=== PATIENT | female | born 1950 | race Caucasian/White ===

== ENCOUNTER 2018-11-26 12:06 | Emergency (ER) | payer OTHER ==
[~2018-11-26] VITALS: Ht 157.5 cm; Wt 59.0 kg
[~2018-11-26 12:06] MED LIST: ACYC800 PO; ALEN70 PO; ALPR.5 PO; AMOCLA875 PO; Benadryl PO; CALCIUM CARBON200 MG PO; CEPH500 PO; CETI10 PO; CETI5 PO; CHOL10002 PO; CLIN300 PO; DESL5 PO; DOCU100 PO; EPIPEN 2-P0.3 MG/0.3 IM; FAMO20 PO; HYDACE5 PO; LAVAP17G PO; LISI20 PO; NUTRITIONAL YEAST; PRED20 PO; Prednisone20 MG PO; QVAR REDIHALE10.6 GM INH; ROSU10TA PO; VITAMIN B
[2018-11-26] MEDS ORDERED: Norco 5-325 Ta1 EACH PO (12:23)
== END 2018-11-26 12:26 | disposition home or self-care (01) ==
LOC: ER 12:06
DX: H57.12 Ocular pain, left eye (principal); Z88.8 Allergy status to other drugs, medicaments and biological substances; Z91.018 Allergy to other foods; Z79.899 Other long term (current) drug therapy; Z79.52 Long term (current) use of systemic steroids; E78.5 Hyperlipidemia, unspecified; I10 Essential (primary) hypertension; J45.909 Unspecified asthma, uncomplicated
CPT/HCPCS: 99283

== ENCOUNTER → 2019-02-02 | Outpatient (CLI) | payer OTHER ==
[~2019-02-02] MED LIST changes: +Norco 5-325 Ta1 EACH PO
[2019-02-04 15:00] LABS: Stool Occult Bld Immuno 1 Negative (NEGATIVE)
== END ==
LOC: LAB 13:30 → LAB SHORT 13:30
PROVIDERS: Nurse Practitioner Family
DX: Z12.11 Encounter for screening for malignant neoplasm of colon (principal)
CPT/HCPCS: G0328

== ENCOUNTER 2019-03-26 11:39 | Emergency (ER) | payer OTHER ==
[~2019-03-26] VITALS: Ht 157.5 cm; Wt 59.0 kg
[2019-03-26 12:53] LABS: BASOPHILS ABSOLUTE AUTO 0.02 K/mm3 (0.00-0.23); BASOPHILS PERCENT AUTO 0 % (0-2); EOSINOPHILS PERCENT AUTO 0 % (0-6); Hematocrit 48.8 % (33.0-51.0); IMMATURE GRAN ABSOLUTE AUTO 0.02 K/mm3 (0.00-0.10); IMMATURE GRAN PERCENT AUTO 0 % (0-1); LYMPHOCYTES PERCENT AUTO 18 % (21-46); MONOCYTES ABSOLUTE AUTO 0.34 K/mm3 (0.16-1.47); MONOCYTES PERCENT AUTO 4 % (4-13); Mean Corpuscular HGB Conc 32.8 g/dL (31.5-36.5); Mean Corpuscular Volume 92 fL (80-100); Mean Platelet Volume 9.1 fL (9.1-12.4); NEUTROPHILS ABSOLUTE AUTO 6.05 K/mm3 (1.96-9.15); NEUTROPHILS PERCENT AUTO 77 % (41-73); Platelet Count 289 K/mm3 (150-400); RDW Coefficient Variation 13.2 % (11.7-14.2); Red Blood Cell Count 5.33 M/mm3 (3.80-5.20); White Blood Cell Count 7.83 K/mm3 (4.00-11.30)
[2019-03-26 13:10] LABS: Alanine Aminotransfer (ALT/SGP 26 U/L (12-78); Albumin, Blood 3.9 g/dL (3.4-5.0); Albumin/Globulin Ratio 0.9 (0.8-1.8); Alk Phos 73 U/L (50-136); Anion Gap 7 mmol/L (6-16); Aspartate Aminotrans (AST/SGOT 29 U/L (12-37); Bilirubin, Total 0.5 mg/dL (0.1-1.0); Blood Urea Nitrogen 14 mg/dL (8-24); Bun/Creatinine Ratio 19.9 (12.0-20.0); CO2, Blood 26 mmol/L (21-32); Calcium, Blood 9.3 mg/dL (8.5-10.1); Chloride, Blood 105 mmol/L (98-108); Globulin, Blood 4.2 g/dL (2.2-4.0); Glomerular Filtration Rate >60 (60-); Glucose, Blood 105 mg/dL (70-99); Potassium, Blood 4.3 mmol/L (3.5-5.5); Sodium, Blood 138 mmol/L (136-145); Total Protein, Blood 8.1 g/dL (6.4-8.2); Troponin I <0.015 ng/mL (0.000-0.040)
[2019-03-26] MEDS ORDERED: Vistaril25 MG PO (13:56)
[2019-03-26] MEDS ORDERED: EPIPEN 2-P0.3 MG/0.3 IM (13:56)
[2019-03-26] MEDS ORDERED: PRED20 PO (13:56)
== END 2019-03-26 14:05 | disposition home or self-care (01) ==
LOC: ER 11:39
PROVIDERS: Emergency Medicine
DX: T78.3XXA Angioneurotic edema, initial encounter (principal); T46.4X5A Adverse effect of angiotensin-converting-enzyme inhibitors, initial encounter; Z88.8 Allergy status to other drugs, medicaments and biological substances; Z91.018 Allergy to other foods; Z79.899 Other long term (current) drug therapy; Z79.52 Long term (current) use of systemic steroids; I10 Essential (primary) hypertension; E78.5 Hyperlipidemia, unspecified
CPT/HCPCS: 36415; 71045; 80053; 83880; 84484; 85025; 93005; 93010; 94640; 94760; 96361; 96374; 96375; 99284-25; J1200; J2930; J7030

== ENCOUNTER 2019-04-29 14:51 | Emergency (ER) | payer OTHER ==
[~2019-04-29] VITALS: Ht 157.5 cm; Wt 59.0 kg
[~2019-04-29 14:51] MED LIST changes: +Vistaril25 MG PO
[2019-04-29] MEDS ORDERED: Dexamethasone4 MG PO (15:32)
== END 2019-04-29 17:14 | disposition home or self-care (01) ==
LOC: ER 14:51
DX: T78.1XXA Other adverse food reactions, not elsewhere classified, initial encounter (principal); L50.0 Allergic urticaria; Z88.8 Allergy status to other drugs, medicaments and biological substances; Z91.018 Allergy to other foods; Z79.899 Other long term (current) drug therapy; Z79.52 Long term (current) use of systemic steroids; E78.5 Hyperlipidemia, unspecified; I10 Essential (primary) hypertension; J45.909 Unspecified asthma, uncomplicated
CPT/HCPCS: 96374; 99283-25; J1200; J2930

== ENCOUNTER 2019-12-18 18:23 | Inpatient (IN) | payer OTHER ==
[~2019-12-18] VITALS: Ht 157.5 cm; Wt 67.2 kg
[~2019-12-18 18:23] MED LIST changes: +Crestor20 MG PO; +Dexamethasone4 MG PO; +LOSA25 PO; -ROSU10TA PO
[2019-12-18 19:57] LABS: BASOPHILS ABSOLUTE AUTO 0.03 K/mm3 (0.00-0.23); BASOPHILS PERCENT AUTO 0 % (0-2); EOSINOPHILS ABSOLUTE AUTO 0.05 K/mm3 (0.00-0.68); EOSINOPHILS PERCENT AUTO 1 % (0-6); Hematocrit 45.4 % (33.0-51.0); Hemoglobin 14.6 g/dL (11.5-16.0); IMMATURE GRAN ABSOLUTE AUTO 0.02 K/mm3 (0.00-0.10); IMMATURE GRAN PERCENT AUTO 0 % (0-1); LYMPHOCYTES ABSOLUTE AUTO 2.74 K/mm3 (0.84-5.20); LYMPHOCYTES PERCENT AUTO 30 % (21-46); MONOCYTES ABSOLUTE AUTO 0.72 K/mm3 (0.16-1.47); MONOCYTES PERCENT AUTO 8 % (4-13); Mean Corpuscular HGB 29.6 pg (26.0-34.0); Mean Corpuscular HGB Conc 32.2 g/dL (31.5-36.5); Mean Corpuscular Volume 92 fL (80-100); Mean Platelet Volume 9.2 fL (9.1-12.4); NEUTROPHILS ABSOLUTE AUTO 5.55 K/mm3 (1.96-9.15); NEUTROPHILS PERCENT AUTO 61 % (41-73); Platelet Count 268 K/mm3 (150-400); RDW Coefficient Variation 12.9 % (11.7-14.2); RDW Standard Deviation 44.2 fL (35.1-46.3); Red Blood Cell Count 4.94 M/mm3 (3.80-5.20); White Blood Cell Count 9.11 K/mm3 (4.00-11.30)
[2019-12-18 20:16] LABS: Alanine Aminotransfer (ALT/SGP 20 U/L (12-78); Albumin, Blood 3.6 g/dL (3.4-5.0); Alk Phos 76 U/L (50-136); Anion Gap 5 mmol/L (6-16); Aspartate Aminotrans (AST/SGOT 30 U/L (12-37); Bilirubin, Total 0.3 mg/dL (0.1-1.0); Blood Urea Nitrogen 12 mg/dL (8-24); Bun/Creatinine Ratio 15.2 (12.0-20.0); CO2, Blood 29 mmol/L (21-32); Calcium, Blood 9.2 mg/dL (8.5-10.1); Chloride, Blood 106 mmol/L (98-108); Creatinine, Blood 0.79 mg/dL (0.40-1.00); Globulin, Blood 3.7 g/dL (2.2-4.0); Glomerular Filtration Rate >60 (60-); Glucose, Blood 124 mg/dL (70-99); Potassium, Blood 3.9 mmol/L (3.5-5.5); Sodium, Blood 140 mmol/L (136-145); Total Protein, Blood 7.3 g/dL (6.4-8.2)
[2019-12-18] MEDS ORDERED: Prednisone10 MG PO (21:24)
[2019-12-18] MEDS ORDERED: ALENDRONATE SOD10 MG PO (21:24)
[2019-12-18] MEDS ORDERED: Loratadine10 MG PO (21:25)
--- NOTE | 2019-12-18 23:30 | NUR ---
PT ADMITTED FROM ER FOR SBO. A&O X4. VSS. DENIES PAIN AND NAUSEA AT THIS TIME. OUT OF BED TO BATHROOM INDEPENDENTLY. PT GIVEN DILAUDID IN ER WHICH CAUSED PT TO DESAT PER REPORT. PT NOW ON 2LO2 VIA NC.
[2019-12-19 00:12] LABS: Source, Urine Clean Catch
[2019-12-19 00:14] LABS: Bilirubin, Urine Neg (Neg); Blood, Urine Neg (Neg); Glucose Qualitative, Urine Neg (Neg); Ketones, Urine 1+ (Neg); Leukocyte Esterase, Urine Neg (Neg); Nitrite, Urine Neg (Neg); Protein, Urine Neg (Neg); Specific Gravity, Urine 1.005 (1.003-1.022); Urobilinogen, Urine NORM (Normal)
[2019-12-19 00:17] LABS: Appearance, Urine Clear (Clear); Color, Urine Yellow (P-Yellow)
[2019-12-19 04:42] LABS: BASOPHILS ABSOLUTE AUTO 0.03 K/mm3 (0.00-0.23); BASOPHILS PERCENT AUTO 0 % (0-2); EOSINOPHILS ABSOLUTE AUTO 0.06 K/mm3 (0.00-0.68); EOSINOPHILS PERCENT AUTO 1 % (0-6); Hematocrit 41.7 % (33.0-51.0); Hemoglobin 13.7 g/dL (11.5-16.0); IMMATURE GRAN ABSOLUTE AUTO 0.02 K/mm3 (0.00-0.10); IMMATURE GRAN PERCENT AUTO 0 % (0-1); LYMPHOCYTES ABSOLUTE AUTO 2.37 K/mm3 (0.84-5.20); LYMPHOCYTES PERCENT AUTO 27 % (21-46); MONOCYTES ABSOLUTE AUTO 0.71 K/mm3 (0.16-1.47); MONOCYTES PERCENT AUTO 8 % (4-13); Mean Corpuscular HGB 29.9 pg (26.0-34.0); Mean Corpuscular HGB Conc 32.9 g/dL (31.5-36.5); Mean Corpuscular Volume 91 fL (80-100); Mean Platelet Volume 9.2 fL (9.1-12.4); NEUTROPHILS ABSOLUTE AUTO 5.55 K/mm3 (1.96-9.15); NEUTROPHILS PERCENT AUTO 64 % (41-73); Platelet Count 219 K/mm3 (150-400); RDW Standard Deviation 43.6 fL (35.1-46.3); Red Blood Cell Count 4.58 M/mm3 (3.80-5.20); White Blood Cell Count 8.74 K/mm3 (4.00-11.30)
[2019-12-19 05:04] LABS: Alanine Aminotransfer (ALT/SGP 20 U/L (12-78); Albumin/Globulin Ratio 0.9 (0.8-1.8); Alk Phos 67 U/L (50-136); Anion Gap 3 mmol/L (6-16); Aspartate Aminotrans (AST/SGOT 25 U/L (12-37); Bilirubin, Total 0.4 mg/dL (0.1-1.0); Blood Urea Nitrogen 10 mg/dL (8-24); Bun/Creatinine Ratio 13.7 (12.0-20.0); CO2, Blood 28 mmol/L (21-32); Calcium, Blood 8.6 mg/dL (8.5-10.1); Chloride, Blood 109 mmol/L (98-108); Creatinine, Blood 0.73 mg/dL (0.40-1.00); Globulin, Blood 3.4 g/dL (2.2-4.0); Glomerular Filtration Rate >60 (60-); Glucose, Blood 90 mg/dL (70-99); Sodium, Blood 140 mmol/L (136-145); Total Protein, Blood 6.4 g/dL (6.4-8.2)
--- NOTE | 2019-12-19 10:26 | NUR ---
Advance Directive education conducted. Upon receiving an admit referral for Advance directive (AD) education, I visit patient. Patient tells me that she has the form at home but does not know what to do with it. I explain the process and importance of the AD. I go over how and where to file the AD. Patient confirms comprehension. I will continue to remain available to patient for further assistance.
--- NOTE | 2019-12-19 18:12 | NUR ---
SHIFT SUMMARY PT HAS DONE WELL THIS SHIFT. TOLERATED TO CLEAR LIQUID DIET WITH NO C/O N/V. HAS HAD 2 LOOSE BM. HAS REPORTED THAT ABDOMINAL PAIN IS TOLERABLE T/O SHIFT.
--- NOTE | 2019-12-20 03:39 | NUR ---
SHIFT SUMMARY: PT HAS DONE WELL THIS SHIFT. REPORTS PAIN IS TOLERABLE AND DENIES NEED FOR MEDICATION. DENIES N/V AND GIOVANNA FULL LIQ DIET. PASSING FLATUS AND HAVING BM'S. ACTIVE BT X4. INGUINAL HERNIA TO LLQ NOTED, DESPITE BEING REDUCED IN ER PRIOR TO ADMIT. VS WNL THIS SHIFT. SBA FOR ALL TRANSFERS.
--- NOTE | 2019-12-20 10:30 | NUR ---
DC INSTRUCTIONS GIVEN, VERBALIZED UNDERSTANDING.
--- NOTE | 2019-12-20 10:45 | NUR ---
Patient is standing and immediately shows me the hernia hanging out even observable covered by her gown and explains about the difficulty with work and other hardships it will cause. Patient is in tears. I listen empathically, normalize patient's experience and provide emotional support and prayer. Patient is tearful through the prayer and voices appreciation for the time and care. Patient states that she is convinced that she will be returning shortly with the same issue.
== END 2019-12-20 10:52 | disposition home or self-care (01) | DRG 388 ==
LOC: ER 18:23 → SURS 22:28
PROVIDERS: Nurse Practitioner; ADMIT Internal Medicine
DX: K56.600 Partial intestinal obstruction, unspecified as to cause (principal); K40.10 Bilateral inguinal hernia, with gangrene, not specified as recurrent; I10 Essential (primary) hypertension; E78.5 Hyperlipidemia, unspecified; Z79.52 Long term (current) use of systemic steroids; Z79.83 Long term (current) use of bisphosphonates
CPT/HCPCS: 36415; 74177; 80053; 81003; 83690; 85025; 96374-59; 96375-59; 99285-25; A9270; J1170; J1650; J2060; J2405; J7030; Q9967

== ENCOUNTER 2020-01-09 19:24 | Inpatient (IN) | payer OTHER ==
[~2020-01-09] VITALS: Ht 157.5 cm; Wt 61.0 kg
[~2020-01-09 19:24] MED LIST changes: +ALENDRONATE SOD10 MG PO; +Loratadine10 MG PO; +Prednisone10 MG PO
[2020-01-09 20:08] LABS: BASOPHILS ABSOLUTE AUTO 0.07 K/mm3 (0.00-0.23); BASOPHILS PERCENT AUTO 1 % (0-2); EOSINOPHILS ABSOLUTE AUTO 0.17 K/mm3 (0.00-0.68); EOSINOPHILS PERCENT AUTO 2 % (0-6); Hematocrit 45.9 % (33.0-51.0); Hemoglobin 15.2 g/dL (11.5-16.0); IMMATURE GRAN ABSOLUTE AUTO 0.01 K/mm3 (0.00-0.10); IMMATURE GRAN PERCENT AUTO 0 % (0-1); LYMPHOCYTES ABSOLUTE AUTO 3.65 K/mm3 (0.84-5.20); LYMPHOCYTES PERCENT AUTO 43 % (21-46); MONOCYTES ABSOLUTE AUTO 0.76 K/mm3 (0.16-1.47); MONOCYTES PERCENT AUTO 9 % (4-13); Mean Corpuscular HGB 29.9 pg (26.0-34.0); Mean Corpuscular HGB Conc 33.1 g/dL (31.5-36.5); Mean Corpuscular Volume 90 fL (80-100); Mean Platelet Volume 9.1 fL (9.1-12.4); NEUTROPHILS ABSOLUTE AUTO 3.76 K/mm3 (1.96-9.15); NEUTROPHILS PERCENT AUTO 45 % (41-73); Platelet Count 261 K/mm3 (150-400); RDW Coefficient Variation 12.6 % (11.7-14.2); RDW Standard Deviation 42.1 fL (35.1-46.3); Red Blood Cell Count 5.08 M/mm3 (3.80-5.20); White Blood Cell Count 8.42 K/mm3 (4.00-11.30)
[2020-01-09 20:29] LABS: Alanine Aminotransfer (ALT/SGP 21 U/L (12-78); Albumin, Blood 4.1 g/dL (3.4-5.0); Alk Phos 82 U/L (50-136); Anion Gap 5 mmol/L (6-16); Aspartate Aminotrans (AST/SGOT 27 U/L (12-37); Bilirubin, Total 0.4 mg/dL (0.1-1.0); Blood Urea Nitrogen 24 mg/dL (8-24); Bun/Creatinine Ratio 26.5 (12.0-20.0); CO2, Blood 28 mmol/L (21-32); Calcium, Blood 9.3 mg/dL (8.5-10.1); Chloride, Blood 104 mmol/L (98-108); Creatinine, Blood 0.91 mg/dL (0.40-1.00); Globulin, Blood 4.2 g/dL (2.2-4.0); Glomerular Filtration Rate >60 (60-); Glucose, Blood 97 mg/dL (70-99); Potassium, Blood 3.7 mmol/L (3.5-5.5); Sodium, Blood 137 mmol/L (136-145); Total Protein, Blood 8.3 g/dL (6.4-8.2)
[2020-01-09] MEDS ORDERED: ZYRTEC10 M2 PO (21:10)
--- NOTE | 2020-01-10 00:06 | NUR ---
PT ARRIVED TO ROOM 229 FROM ER. PT A/O, WEAK/PAINFUL WHEN UP. PT C/O NAUSEA, REP ABD PAIN 7/10 W/MVMT. PT HAS LARGE HERNIA TO LEFT LOWER ABD/INGUINAL SITE. SITE FIRM, HOT, PAINFUL TO PALP. PT ORIENTED TO ROOM, ORDERS AND TX PLAN REV W/PT. PT GIVEN WARM BLANKET PER REQ FOR PAIN, MEDICATED FOR NAUSEA, IVF STARTED. PT NPO, CALL LIGHT IN REACH, PLAN TO MONITOR AND TX PER JESSICA
--- NOTE | 2020-01-10 07:20 | NUR ---
RECVD REPORT FROM PREVIOUS RN NASEEM, PT SLEEPING IN BED, BED IN LOWEST POSITION, CALL LIGHT WITHIN REACH, BED RAILS UP X 2
--- NOTE | 2020-01-10 07:41 | NUR ---
PT NEW ADMIT FOR INCARCERATED LEFT INGUINAL HERNIA. PT VSS, SATS >90% W/2LO2 NC. PT STRUGGLED W/NAUSEA, ZOFRAN GIVEN PER ORDERS. PT VERY PAINFUL W/MVMT, SITE FIRM, PAINFUL TO PALP. PAIN MGD W/0.25MG IV DILAUDID W/REP RELIEF. PT REP SOME DIFFICULTY VOIDING R/T PRESSURE FROM HERNIA. PT UP OOB W/FWW+SBA, IS USING CALL LIGHT FOR ASSISTANCE. PT NPO SINCE ARRIVING TO FLOOR, IVF CONT. REPORT GIVEN TO DAY RN.
--- NOTE | 2020-01-10 19:19 | NUR ---
shift summary: vss, no acute changes t/o shift, pt remained a/o x 4, pleasant/cooperative, npo awaiting surgical repair, urine output >400 using bedside commode and gait belt to transfer r/t weakness. pt states she is weaker than she has been before with this current admit. pt rates pain at 5-6/10 prior to analgesia per nov, 2-3/10 on reassessment. p pt returned from surgical intervention hernia repair approx 1850, a/o x 4, rates pain at 0/10. no n/v, requests apple juice
--- NOTE | 2020-01-10 20:42 | NUR ---
PATIENT RETURNED FROM OR @1852, PATIENT IS AWAKE AND AWARE. NO COMPLAINTS OF PAIN. VSS. NO BLEED THROUGH ON GAUZE DRESSING ON THE SURGICAL INCISION ON LT LOWER QUADRANT. SCDs ON WITH PUMP ON. PT IS THIRSTY AND HAS INITIALLY TOLERATED PO FLUIDS WELL POST OP.
--- NOTE | 2020-01-10 21:21 | NUR ---
PT HAS MILD SWELLING TO THE LT SIDE OF HER UPPER AND LOWER LIPS. SHE STATED THAT SHE WOULD NORMALLY TAKE ZYRTEC AND EQUIVILANT WAS GIVEN. NO ISSUES WITH BREATHING, NO ANGIOEDEMA. NO OTHER HIVES OR SWELLING. UP TO BSC WITHOUT ISSUES.
--- NOTE | 2020-01-11 00:26 | NUR ---
ASSUMED CARE OF PT AT THIS TIME. ASSISTED UP TO BSC, BACK TO BED, TOLERATED WELL, DENIES FURTHER NEEDS. SWELLING TO LIPS/CHEEK SLIGHTLY INCREASED FROM PREVIOUS ASSESSMENT. PT DENIES DIFFICULTY BREATHING/SWALLOWING, REPORTS "THIS HAS HAPPENED BEFORE WITH TAPE ALLERGY." VSS. WILL CONTINUE TO MONITOR CLOSELY, CALL LIGHT IN REACH.
--- NOTE | 2020-01-11 04:04 | NUR ---
SHIFT SUMMARY POD#1 HERNIA REPAIR WITH MESH. AAOX4. PT DENIES DISCOMFORT/NAUSEA T/O NIGHT. ABD INCISION C/D/I. PT SBA UP TO BSC, TOLERATES WELL. INCREASED SWELLING TO PT'S LIPS/CHEEKS POST OP, DENIES SOB OR DIFFICULTY SWALLOWING. PT REPORTING THIS A COMMON REACTION TO TAPE USE DURING OR, 50mg IV BENADRYL GIVEN X1 YESTARDAY. PT RESTING WELL THIS AM WITH CALL LIGHT IN REACH.
--- NOTE | 2020-01-11 10:27 | NUR ---
01/11/20 1027 Eleanor Monterroso VERIFICATIONS, AUDITS.
--- NOTE | 2020-01-11 16:10 | NUR ---
SHIFT SUMMARY PT DOING WELL THIS SHIFT. VSS. 1 NORCO FOR PAIN PRN. GAUZE TO ABD REMAINS CDI. PT GIOVANNA CLEAR LIQ DIET AND IS ADVANCING TO REG DIET FOR DINNER. 1 MIN SBA WITH FWW TO BATHROOM AND DURING AMBULATION. PT REPORTS PASSING GAS. USES CALL LIGHT APPROPRIATELY. PT TO DISCHARGE HOME TOMORROW IF DOES WELL T/O NIGHT.
--- NOTE | 2020-01-11 23:36 | NUR ---
PATIENT WOKE AND CALLED RN DUE TO HEARTBURN AND NAUSEA. NEW IV STARTED AND PT GIVEN ZOFRAN IV.
--- NOTE | 2020-01-12 05:08 | NUR ---
PATIENT'S NAUSEA RESOLVED SHORTLY AFTER THE ZOFRAN IV. SHE WAKES EASILY TO VERBAL STIM, CALLS APPROPRIATELY TO HELP WITH BRP. USES WALKER & GAIT BELT WITH SBA. LT ABD DRESSING IS C/D/I. NO ACUTE CHANGES THIS SHIFT.
[2020-01-12] MEDS ORDERED: HYDR1TAB94 PO (12:18)
--- NOTE | 2020-01-12 12:59 | NUR ---
DISCHARGE PT DISCHARGING HOME. PT EDUCATED ON AND RECEIVED PRINTED DC INSTRUCTIONS AND VERBALIZED AN UNDERSTANDING. HARD RX FOR NORCO GIVEN TO PT. IV DC'D. PT INDEPENDENTLY DRESSED SELF AND GATHERED PERSONAL BELONGINGS. [employer] CALLED FOR TRANSPORTATION HOME PER PT REQUEST AND IS PAID BY PT.
== END 2020-01-12 13:17 | disposition home or self-care (01) | DRG 351 ==
LOC: ER 19:24 → SURS 19:25
PROVIDERS: Nurse Practitioner; ADMIT Surgery
PROC: 0YU60JZ Supplement Left Inguinal Region with Synthetic Substitute, Open Approach (ICD-10-PCS; principal; 2020-01-12)
DX: K40.30 Unilateral inguinal hernia, with obstruction, without gangrene, not specified as recurrent (principal); K56.609 Unspecified intestinal obstruction, unspecified as to partial versus complete obstruction; K51.90 Ulcerative colitis, unspecified, without complications; I10 Essential (primary) hypertension; E78.5 Hyperlipidemia, unspecified; Z79.83 Long term (current) use of bisphosphonates; Z79.899 Other long term (current) drug therapy
CPT/HCPCS: 36415; 74177; 80053; 85025; 96361; 96374-59; 96375; 96376; 99285-25; A9270-GY; C1781; J0690; J1100; J1170; J1200; J1885; J2250; J2370; J2405; J2704; J2710; J3010; J7030; Q9967

== ENCOUNTER 2020-07-04 14:52 | Day surgery (SDC) | payer OTHER ==
--- NOTE | 2020-07-04 10:40 | NUR ---
LATE ENTRY DUE [facility]- Discharge instructions reviewed with patient. Patient verbalizes understanding. Copy given to patient to take home. Discharged via wheelchair to private car for ride home. TOLERATED JUICE WELL.
--- NOTE | 2020-07-04 11:32 | NUR ---
07/04/20 1132 Paulina Quintero History, Chart, Medications and Allergies reviewed before start of procedure.Patient confirms NPO status and agrees with scheduled surgery.MONITOR INTACT WITH CONTINUOUS PULSE OXIMETRY AND INTERMITTENT BP.3-LEAD EKG REVIEWED WITH PHYSICIAN PRIOR TO START OF PROCEDURE.O2 VIA N/C INTACT THROUGHOUT SEDATION/PROCEDURE.PATIENT DETERMINED TO BE ASA APPROPRIATE FOR PROPOFOL SEDATION PRIOR TO START OF PROCEDURE BY
--- NOTE | 2020-07-04 12:23 | NUR ---
BROUGHT INOT SDS AT 0745 ADMISSION STARTED TO UNIT. Ambulatory in Day Surgery History, Chart, Medications and Allergies reviewed before start of procedure.Lungs clear T/O to Auscultation. Patient States Post-Procedure ride home has been arranged.
[~2020-07-04 14:52] MED LIST changes: +HYDR1TAB94 PO; +ZYRTEC10 M2 PO
== END 2020-07-04 16:00 | disposition home or self-care (01) ==
LOC: ORSCMMR 14:52
PROVIDERS: Internal Medicine Gastroenterology
PROC: 0DBL8ZX Excision of Transverse Colon, Via Natural or Artificial Opening Endoscopic, Diagnostic (ICD-10-PCS; principal; 2020-07-04 08:30)
DX: Z12.11 Encounter for screening for malignant neoplasm of colon (principal); Z86.010 Personal history of colon polyps; D12.3 Benign neoplasm of transverse colon; I10 Essential (primary) hypertension; E78.00 Pure hypercholesterolemia, unspecified; Z79.899 Other long term (current) drug therapy
CPT/HCPCS: 88305; J2704; J7120

== ENCOUNTER 2021-07-17 09:04 | Emergency (ER) | payer OTHER ==
[~2021-07-17] VITALS: Ht 157.5 cm; Wt 60.8 kg
[2021-07-17 09:40] LABS: BASOPHILS ABSOLUTE AUTO 0.07 K/mm3 (0.00-0.23); BASOPHILS PERCENT AUTO 1 % (0-2); EOSINOPHILS ABSOLUTE AUTO 0.25 K/mm3 (0.00-0.68); EOSINOPHILS PERCENT AUTO 3 % (0-6); Hematocrit 45.1 % (33.0-51.0); Hemoglobin 14.9 g/dL (11.5-16.0); IMMATURE GRAN ABSOLUTE AUTO 0.01 K/mm3 (0.00-0.10); IMMATURE GRAN PERCENT AUTO 0 % (0-1); LYMPHOCYTES ABSOLUTE AUTO 3.21 K/mm3 (0.84-5.20); LYMPHOCYTES PERCENT AUTO 43 % (21-46); MONOCYTES PERCENT AUTO 11 % (4-13); Mean Corpuscular Volume 91 fL (80-100); Mean Platelet Volume 9.3 fL (9.1-12.4); NEUTROPHILS ABSOLUTE AUTO 3.06 K/mm3 (1.96-9.15); NEUTROPHILS PERCENT AUTO 41 % (41-73); Platelet Count 268 K/mm3 (150-400); RDW Coefficient Variation 13.2 % (11.7-14.2); RDW Standard Deviation 44.4 fL (35.1-46.3); Red Blood Cell Count 4.96 M/mm3 (3.80-5.20)
[2021-07-17] MEDS ORDERED: GABA100 PO (10:01)
[2021-07-17 10:24] LABS: Alanine Aminotransfer (ALT/SGP 20 U/L (12-78); Albumin, Blood 3.7 g/dL (3.4-5.0); Albumin/Globulin Ratio 0.9 (0.8-1.8); Alk Phos 105 U/L (50-136); Anion Gap 6 mmol/L (6-16); Aspartate Aminotrans (AST/SGOT 24 U/L (12-37); Bilirubin, Total 0.3 mg/dL (0.1-1.0); Blood Urea Nitrogen 16 mg/dL (8-24); Bun/Creatinine Ratio 21.3 (12.0-20.0); CO2, Blood 28 mmol/L (21-32); Calcium, Blood 9.5 mg/dL (8.5-10.1); Chloride, Blood 106 mmol/L (98-108); Creatinine, Blood 0.75 mg/dL (0.40-1.00); Globulin, Blood 4.3 g/dL (2.2-4.0); Glomerular Filtration Rate >60 (60-); Glucose, Blood 106 mg/dL (70-99); Potassium, Blood 3.8 mmol/L (3.5-5.5); Sodium, Blood 140 mmol/L (136-145); Troponin I <0.015 ng/mL (0.000-0.040)
[2021-07-17 11:26] LABS: Source, Urine Clean Catch
[2021-07-17 11:31] LABS: Appearance, Urine Clear (Clear); Bilirubin, Urine Neg (Neg); Blood, Urine Neg (Neg); Color, Urine Yellow (P-Yellow); Glucose Qualitative, Urine Neg (Neg); Ketones, Urine Neg (Neg); Leukocyte Esterase, Urine Neg (Neg); Nitrite, Urine Neg (Neg); Protein, Urine Neg (Neg); Urobilinogen, Urine NORM (Normal)
== END 2021-07-17 12:55 | disposition home or self-care (01) ==
LOC: ER 09:04
PROVIDERS: Physician Assistant
DX: R55 Syncope and collapse (principal); R42 Dizziness and giddiness; E78.5 Hyperlipidemia, unspecified; I10 Essential (primary) hypertension; Z88.1 Allergy status to other antibiotic agents; Z88.8 Allergy status to other drugs, medicaments and biological substances; Z79.899 Other long term (current) drug therapy
CPT/HCPCS: 36415; 71045; 80053; 81003; 83880; 84484; 85025; 93005; 93010; 99284-25; J7030

== ENCOUNTER 2022-08-26 03:01 | Emergency (ER) | payer OTHER ==
[~2022-08-26] VITALS: Ht 157.5 cm; Wt 59.0 kg
[~2022-08-26 03:01] MED LIST changes: +GABA100 PO; +MECL25 PO
[2022-08-26] MEDS ORDERED: PRED20 PO (06:00)
== END 2022-08-26 06:26 | disposition home or self-care (01) ==
LOC: ER 03:01
DX: T78.3XXA Angioneurotic edema, initial encounter (principal); I10 Essential (primary) hypertension; E78.5 Hyperlipidemia, unspecified; Z88.1 Allergy status to other antibiotic agents; Z88.8 Allergy status to other drugs, medicaments and biological substances; Z79.899 Other long term (current) drug therapy
CPT/HCPCS: 36415; 94640; 94664; J1200; J2930

== ENCOUNTER 2023-04-12 13:16 | Day surgery (SDC) | payer OTHER ==
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
[~2023-04-12 13:16] MED LIST changes: +ROSU5 PO; +XOLAIR SC
[2023-04-12 13:28] VITALS: BP 144/81
== END 2023-04-12 13:55 | disposition home or self-care (01) ==
LOC: ATC 13:16
DX: L50.1 Idiopathic urticaria (principal)
CPT/HCPCS: 96372; J2357

== ENCOUNTER 2023-06-11 04:42 | Day surgery (SDC) | payer OTHER ==
[2023-06-11 09:35] VITALS: BP 124/70
== END 2023-06-11 09:59 | disposition home or self-care (01) ==
LOC: ATC 04:42
DX: L50.1 Idiopathic urticaria (principal); Z91.018 Allergy to other foods
CPT/HCPCS: 96372; J2357

== ENCOUNTER 2023-07-12 02:08 | Day surgery (SDC) | payer OTHER ==
[2023-07-12 10:15] VITALS: BP 128/91
== END 2023-07-12 10:21 | disposition home or self-care (01) ==
LOC: ATC 02:08
DX: L50.1 Idiopathic urticaria (principal); K21.9 Gastro-esophageal reflux disease without esophagitis
CPT/HCPCS: 96372; J2357

== ENCOUNTER 2023-08-11 02:01 | Day surgery (SDC) | payer OTHER ==
[2023-08-11 09:52] VITALS: BP 140/70
== END 2023-08-11 10:01 | disposition home or self-care (01) ==
LOC: ATC 02:01
DX: L50.1 Idiopathic urticaria (principal)
CPT/HCPCS: 96372; J2357

== ENCOUNTER 2023-09-08 04:42 | Day surgery (SDC) | payer OTHER ==
[2023-09-08 10:56] VITALS: BP 142/69
== END 2023-09-08 11:03 | disposition home or self-care (01) ==
LOC: ATC 04:42
DX: L50.1 Idiopathic urticaria (principal)
CPT/HCPCS: 96372; J2357

== ENCOUNTER 2023-09-12 08:26 | Emergency (ER) | payer OTHER ==
[~2023-09-12] VITALS: Ht 160 cm; Wt 63.5 kg
[2023-09-12 09:28] LABS: BASOPHILS ABSOLUTE AUTO 0.09 K/mm3 (0.00-0.23); BASOPHILS PERCENT AUTO 1 % (0-2); EOSINOPHILS ABSOLUTE AUTO 0.11 K/mm3 (0.00-0.68); EOSINOPHILS PERCENT AUTO 2 % (0-6); Hematocrit 44.3 % (33.0-51.0); Hemoglobin 14.7 g/dL (11.5-16.0); IMMATURE GRAN ABSOLUTE AUTO 0.02 K/mm3 (0.00-0.10); IMMATURE GRAN PERCENT AUTO 0 % (0-1); LYMPHOCYTES ABSOLUTE AUTO 3.15 K/mm3 (0.84-5.20); LYMPHOCYTES PERCENT AUTO 47 % (21-46); MONOCYTES ABSOLUTE AUTO 0.75 K/mm3 (0.16-1.47); MONOCYTES PERCENT AUTO 11 % (4-13); Mean Corpuscular HGB Conc 33.2 g/dL (31.5-36.5); Mean Corpuscular Volume 90 fL (80-100); Mean Platelet Volume 9.5 fL (9.1-12.4); NEUTROPHILS ABSOLUTE AUTO 2.57 K/mm3 (1.96-9.15); NEUTROPHILS PERCENT AUTO 39 % (41-73); Platelet Count 234 K/mm3 (150-400); RDW Coefficient Variation 13.3 % (11.7-14.2); RDW Standard Deviation 44.3 fL (35.1-46.3); White Blood Cell Count 6.69 K/mm3 (4.00-11.30)
[2023-09-12 09:50] LABS: Albumin, Blood 3.5 g/dL (3.4-5.0); Albumin/Globulin Ratio 0.9 (0.8-1.8); Bilirubin, Total 0.4 mg/dL (0.1-1.0); Bun/Creatinine Ratio 24.3 (12.0-20.0); Creatinine, Blood 0.95 mg/dL (0.40-1.00); Potassium, Blood 4.2 mmol/L (3.5-5.5); Total Protein, Blood 7.5 g/dL (6.4-8.2)
[2023-09-12] MEDS ORDERED: MECL25 PO (11:22)
[2023-09-12 11:46] VITALS: BP 138/75
== END 2023-09-12 11:49 | disposition home or self-care (01) ==
LOC: ER 08:26
PROVIDERS: Emergency Medicine
DX: R42 Dizziness and giddiness (principal); I10 Essential (primary) hypertension; E78.5 Hyperlipidemia, unspecified; Z79.899 Other long term (current) drug therapy; Z88.1 Allergy status to other antibiotic agents; Z88.6 Allergy status to analgesic agent
CPT/HCPCS: 71046; 80053; 84484; 85025; 93005; 93010; 99284-25; A9270

== ENCOUNTER 2023-10-07 04:28 | Day surgery (SDC) | payer OTHER ==
[2023-10-07 08:53] VITALS: BP 145/83
[2023-10-07] MEDS ORDERED: AMLODIPINE BES2.5 MG PO (09:35)
== END 2023-10-07 09:00 | disposition home or self-care (01) ==
LOC: ATC 04:28
DX: L50.1 Idiopathic urticaria (principal); K21.9 Gastro-esophageal reflux disease without esophagitis; Z88.8 Allergy status to other drugs, medicaments and biological substances
CPT/HCPCS: 96372; J2357

== ENCOUNTER 2023-11-04 03:00 | Day surgery (SDC) | payer OTHER ==
[~2023-11-04 03:00] MED LIST changes: +AMLODIPINE BES2.5 MG PO
[2023-11-04] MEDS ORDERED: Omalizumab 150 MG Syringe SC SCH (06:45)
[2023-11-04 08:00] VITALS: BP 139/69
== END 2023-11-04 08:02 | disposition home or self-care (01) ==
LOC: ATC 03:00
DX: L50.1 Idiopathic urticaria (principal); K21.9 Gastro-esophageal reflux disease without esophagitis
CPT/HCPCS: 96372; J2357

== ENCOUNTER 2024-08-21 08:02 | Emergency (ER) | payer OTHER ==
[~2024-08-21] VITALS: Ht 157.5 cm; Wt 62.6 kg
[~2024-08-21 08:02] MED LIST changes: +Crestor40 MG PO; -ROSU5 PO
[2024-08-21 08:21] VITALS: BP 139/83
[2024-08-21] MEDS ORDERED: CORTISONE60 GM TOP (09:15)
[2024-08-21] MEDS ORDERED: Vistaril25 MG PO (09:15)
== END 2024-08-21 09:24 | disposition home or self-care (01) ==
LOC: ER 08:02
DX: T14.8XXA Other injury of unspecified body region, initial encounter (principal); W57.XXXA Bitten or stung by nonvenomous insect and other nonvenomous arthropods, initial encounter; E78.5 Hyperlipidemia, unspecified; I10 Essential (primary) hypertension; Z79.899 Other long term (current) drug therapy; Z88.6 Allergy status to analgesic agent; Z88.1 Allergy status to other antibiotic agents
CPT/HCPCS: 99282

== ENCOUNTER 2025-08-01 07:16 | Day surgery (SDC) | payer OTHER ==
[~2025-08-01] VITALS: Ht 149.9 cm; Wt 55.6 kg
[~2025-08-01 07:16] MED LIST changes: +CORTISONE60 GM TOP
[2025-08-01 07:52] VITALS: BP 152/68
--- NOTE | 2025-08-01 07:59 | NUR ---
Wheelchaired into Day Surgery. History, Chart, Medications and Allergies reviewed before start of procedure.Pre-Op teaching done. Pt verbalizes understanding. Patient States Post-Procedure ride home has been arranged.
--- NOTE | 2025-08-01 09:05 | NUR ---
08/01/25 0905 Deonte Archuleta MONITOR INTACT WITH CONTINUOUS PULSE OXIMETRY, CONTINUOUS END TITAL CO2, 3-LEAD EKG AND INTERMITTENT BLOOD PRESSURE. O2 VIA POM INTACT THROUGHOUT SEDATION/PROCEDURE.
[2025-08-01 09:30] VITALS: BP 120/64
--- NOTE | 2025-08-01 09:41 | NUR ---
DISCHARGE NOTE PT A&OX4, BREATHING RA, VSS, NO COMPLAINTS. TOLERATING PO FLUIDS. DRESSING INDEPENDENTLY. ABDOMEN SOFT AND NON TENDER. Discharge instructions reviewed with patient. Patient verbalizes understanding. Copy given to patient to take home. Discharged via wheelchair to private car for ride home.
== END 2025-08-01 09:45 | disposition home or self-care (01) ==
LOC: ORSCMMR 07:16 → ORD 08:45 → ORSCMMR 08:45
PROVIDERS: Internal Medicine Gastroenterology
PROC: 0DJD8ZZ Inspection of Lower Intestinal Tract, Via Natural or Artificial Opening Endoscopic (ICD-10-PCS; principal; 2025-08-01 08:45)
DX: Z12.11 Encounter for screening for malignant neoplasm of colon (principal); Z86.0101 Personal history of adenomatous and serrated colon polyps; I10 Essential (primary) hypertension
CPT/HCPCS: J2704; J7120